=== PATIENT | female | born 1995 | race Caucasian/White ===

== ENCOUNTER → 2020-08-15 | Outpatient (CLI) | payer BC ==
--- NOTE | 2020-08-15 16:23 | RAD ---
Thyroid ultrasound Clinical indications: Thyroid nodule.. Findings: The longitudinal and AP and transverse dimensions of the right lobe of the thyroid gland ar e 5.0 cm x 1.3 cm x 1.6 cm respectively. The right lobe is homogeneous in appearance. The longitudinal and AP and transverse dimensions of the left lobe are 4.3 cm x 0.9 cm x 1.3 cm respe ctively. There is a hypoechoic solid nodule within the lateral mid aspect of the left lobe measuring 13 mm x 7 mm x 7 mm in size. No calcifications are seen within it. Nodule is vascular. It is wider th an it is tall. This is considered a TI RADS type IV lesion; FNA if greater than 15 mm and follow-up i f greater than 10 mm. The isthmus is homogeneous in appearance and measures 2 mm in thickness. Impression: 13 mm solid nodule of the left lobe considered a TI RADS type IV lesion. Typically, recom mendation for biopsy of these lesions is when the size is greater than 15 mm but given the patient's young age and solitary lesion measuring 13 mm, FNA is recommended now. Reference: ACR thyroid imaging, reporting and data system (TI-RADS): White paper of the ACR TI-RADS committee; [employer] THE [employer]; volume 14, issue 5, pages 587-595 (September 2016 ) Electronically signed by: Shin Nicholson MD (08/15/2020 4:21 PM) [id number]
== END ==
LOC: US 15:38
DX: E04.1 Nontoxic single thyroid nodule (principal)
CPT/HCPCS: 76536

== ENCOUNTER → 2020-12-13 | Outpatient (CLI) | payer OTHER ==
--- NOTE | 2020-12-13 17:38 | RAD ---
EXAMINATION: XR SHOULDER_LEFT 2+ VIEWS CLINICAL HISTORY: Shoulder pain TECHNIQUE: XR SHOULDER_LEFT 2+ VIEWS Number of Images/Views: 3 COMPARISON: None FINDINGS: Joint spaces and alignment maintained. No acute fracture. No focal soft tissue swelling. IMPRESSION: No acute osseous abnormality. Electronically signed by: Kyle Pfeiffer DO (12/13/2020 5:36 PM) [id number]
== END ==
LOC: RAD 14:34
PROVIDERS: ATTEND Physician Assistant
DX: M25.512 Pain in left shoulder (principal)
CPT/HCPCS: 73030

== ENCOUNTER → 2021-02-19 | Outpatient (CLI) | payer BC, OTHER ==
[2021-02-20 18:54] LABS: FREE T4 0.92 ng/dL (0.76-1.46); THYROID STIM HORMONE (TSH) 1.224 uIU/mL (0.358-3.740)
[2021-02-20 22:09] LABS: ESTRADIOL LEVEL 98.8 pg/mL (.); FSH 8.5 mIU/mL (.); LUTEINIZING HORMONE 24.6 mIU/mL (.); PROLACTIN 11.5 ng/mL (4.8-23.3)
[2021-02-23 16:07] LABS: TESTOSTERONE FREE 1.02 ng/dL (0.10-0.85); TESTOSTERONE TOTAL 65 ng/dL (13-71)
== END ==
LOC: LAB 15:40
PROVIDERS: ATTEND Internal Medicine
DX: E04.1 Nontoxic single thyroid nodule (principal); N92.6 Irregular menstruation, unspecified
CPT/HCPCS: 36415; 82670; 83001; 83002; 84146; 84402; 84403; 84439; 84443

== ENCOUNTER → 2021-02-28 | Outpatient (CLI) | payer OTHER | LOC: LAB 12:16 | PROVIDERS: ATTEND Internal Medicine Cardiovascular Disease | DX: Z20.822 Contact with and (suspected) exposure to COVID-19 (principal) | CPT/HCPCS: U0003 ==

== ENCOUNTER → 2021-03-07 | Outpatient (CLI) | payer OTHER | LOC: LAB 08:11 | PROVIDERS: ATTEND Internal Medicine Cardiovascular Disease | DX: Z20.822 Contact with and (suspected) exposure to COVID-19 (principal) | CPT/HCPCS: U0003 ==